=== PATIENT | female | born 1945 | race Caucasian/White ===

== ENCOUNTER 2017-11-10 23:01 | Emergency (ER) | payer MEDICARE, OTHER ==
[2017-11-10 23:44] VITALS: TEMP 97.2; O2SAT 96
[2017-11-10] MEDS ORDERED: cloNIDine HCL 0.1 MG TAB PO ONE (23:45)
--- NOTE | 2017-11-10 23:49 | ED.PDOC ---
History of Present Illness - General Chief Complaint: Blood Pressure Problem Stated Complaint: high B/P, headache Time Seen by Provider: 11/10/17 23:44 Source: patient Exam Limitations: no limitations - History of Present Illness Initial Comments: patient comes in with headache, body ache, chest discomfort, and elevated blood pressure since about noon. Patient states she ran of her blood pressure medication on Saturday. Patient normally takes 1 pill a day but is unsure about the actual name of the medication. Patient states her blood pressure had been doing well since the passing of her mother. However, today she started feeling ill. Patient states about noon she noticed that she had a bilateral throbbing headache at the temples with no blurry vision, nausea, or vomiting. As the day progressed every time she tried to get up from rest patient refill aching in her chest back and abdomen. She denies any overt pain, diaphoresis, or shortness of breath. Patient just does not feel well. Timing/Duration: 7-24 hours Severity: mild Location: back, other Activities at Onset: activity Prior Chest Pain/Cardiac Workup: no prior chest pain, no prior cardiac workup Improving Factors: rest Worsening Factors: movement Nitro Today/Relief: no nitro taken today Aspirin Treatment Today: no aspirin today Associated Symptoms: headaches, malaise Allergies/Adverse Reactions: Allergies Sulfamethoxazole w/Trimethoprim [From Bactrim] Allergy (Mild, Verified 11/10/17 23:43) Rash Home Medications: Ambulatory Orders Calcium 600 mg PO DAILY 06/12/15 Colchicine [Colcrys] 0.6 mg PO DAILY 06/12/15 Conjugated Estrogens [Premarin] 0.625 mg PO DAILY 06/12/15 Dicyclomine HCl [Bentyl] 20 mg PO QID PRN #20 tab 06/12/15 Famotidine [Pepcid Tab] 20 mg PO BID PRN 06/12/15 Gabapentin 300 mg PO DAILY 06/12/15 Losartan Potassium & Hydrochlo [Losartan Potassium/Hydroc 100-25 mg] 1 tab PO DAILY 06/12/15 Metoprolol Succinate [Metoprolol Succinate ER] 100 mg PO DAILY 06/12/15 Potassium Gluconate 595 mg PO DAILY 06/12/15 tiZANidine [Zanaflex] 4 mg PO BEDTIME 06/12/15 Review of Systems - Review of Systems Constitutional: States: see HPI. Denies: chills, fever EENTM: States: eye pain. Denies: double vision, ear pain, ear discharge, nose pain, throat pain Respiratory: States: no symptoms reported. Denies: cough, short of breath, wheezing Gastrointestinal/Abdominal: States: see HPI Genitourinary: States: no symptoms reported Musculoskeletal: States: back pain Skin: States: no symptoms reported Neurological: States: headache, weakness. Denies: numbness, paresthesia, tingling Past Medical History (General) - Patient Medical History Hx Seizures: No Hx Stroke: No Hx Dementia: No Hx Asthma: No Hx of COPD: No Hx Cardiac Disorders: No Hx Congestive Heart Failure: No Hx Pacemaker: No Hx Hypertension: Yes Hx Thyroid Disease: No Hx Diabetes: Yes - borderline Hx Gastroesophageal Reflux: Yes Hx Renal Disease: No Hx Cancer: No Hx of HIV: No Hx Hepatitis C: No Hx MRSA: No Surgical History: Hysterectomy - Vaccination History Hx Influenza Vaccination: Yes - 2014 Hx Pneumococcal Vaccination: Yes - Social History Hx Tobacco Use: No Family Medical History - Family History Mother Family History: No Known Living Status: Unknown Physical Exam - Physical Exam General Appearance: Alert, No apparent distress Eyes, Ears, Nose, Throat Exam: PERRL/EOMI, normal ENT inspection, TMs normal, pharynx normal Neck: non-tender, full range of motion, supple, normal inspection Respiratory: chest non-tender, lungs clear, normal breath sounds, no respiratory distress Cardiovascular/Chest: normal peripheral pulses, regular rate, rhythm, no edema, no gallop, no JVD, no murmur Peripheral Pulses: radial,right: 2+ Gastrointestinal/Abdominal: normal bowel sounds, non tender, soft, no organomegaly, no pulsatile mass Extremity: normal range of motion Neurologic: dust puller II-XII nml as tested, no motor/sensory deficits, alert, oriented x 3 Skin Exam: normal color Progress - Progress Progress: 11/11/17 00:57 11/10/17 23:45 EKG STAT Laboratory Results WBC 6.9 K/mm3 (4.8-10.8) 11/10/17 23:52 RBC 4.32 M/mm3 (4.20-5.40) 11/10/17 23:52 Hgb 14.0 gm/dL (12.0-16.0) 11/10/17 23:52 Hct 40.7 % (36.0-47.0) 11/10/17 23:52 MCV 94.3 fl (81.0-99.0) 11/10/17 23:52 MCH 32.3 pg (27.0-31.0) H 11/10/17 23:52 MCHC 34.3 g/dL (33.0-37.0) 11/10/17 23:52 RDW 13.8 % (11.5-14.5) 11/10/17 23:52 Plt Count 244 K/mm3 (130-400) 11/10/17 23:52 MPV 8.7 fl (7.40-10.4) 11/10/17 23:52 Absolute Neuts (auto) 3.50 K/uL (1.8-6.8) 11/10/17 23:52 Absolute Lymphs (auto) 2.70 K/uL (1.0-3.4) 11/10/17 23:52 Absolute Monos (auto) 0.50 K/uL (0.2-0.8) 11/10/17 23:52 Absolute Eos (auto) 0.10 K/uL (0.0-0.4) 11/10/17 23:52 Absolute Basos (auto) 0.10 K/uL (0.0-0.1) 11/10/17 23:52 Neutrophils % 51.2 % (42.0-78.0) 11/10/17 23:52 Lymphocytes % 39.3 % (20.0-50.0) 11/10/17 23:52 Monocytes % 6.8 % (2.0-9.0) 11/10/17 23:52 Eosinophils % 1.8 % (1.0-5.0) 11/10/17 23:52 Basophils % 0.9 % (0.0-2.0) 11/10/17 23:52 PT 10.7 SECONDS (9.4-12.5) 11/10/17 23:52 INR 0.920 11/10/17 23:52 PTT (SP) 29.3 SECONDS (25.1-36.5) 11/10/17 23:52 Sodium 140 mmol/L (135-145) 11/10/17 23:52 Potassium 3.4 mmol/L (3.6-5.0) L 11/10/17 23:52 Chloride 104 mmol/L (101-111) 11/10/17 23:52 Carbon Dioxide 28 mmol/L (21-31) 11/10/17 23:52 Anion Gap 11.4 (12-18) L 11/10/17 23:52 BUN 13 mg/dL (7-18) 11/10/17 23:52 Creatinine 0.70 mg/dL (0.6-1.3) 11/10/17 23:52 BUN/Creatinine Ratio 18.6 (10-20) 11/10/17 23:52 Random Glucose 179 mg/dL (70-105) H 11/10/17 23:52 Serum Osmolality 284.0 mOsm/L (275-295) 11/10/17 23:52 Calcium 8.9 mg/dL (8.4-10.2) 11/10/17 23:52 Magnesium 1.6 mg/dL (1.8-2.5) L 11/10/17 23:52 Total Bilirubin 0.3 mg/dL (0.2-1.0) 11/10/17 23:52 Direct Bilirubin < 0.1 mg/dL (0-0.2) 11/10/17 23:52 Indirect Bilirubin 0.2 mg/dL (0.2-0.8) 11/10/17 23:52 AST 22 IU/L (10-42) 11/10/17 23:52 ALT 22 IU/L (10-60) 11/10/17 23:52 Alkaline Phosphatase 55 IU/L (42-121) 11/10/17 23:52 Creatine Kinase 38 IU/L (26-140) 11/10/17 23:52 CK-MB (CK-2) 2.3 ng/mL (0.0-4.4) 11/10/17 23:52 CK-MB (CK-2) % Not Reportable 11/10/17 23:52 Troponin I 0.02 ng/mL (0.01-0.05) 11/10/17 23:52 Serum Total Protein 6.6 gm/dL (6.4-8.2) 11/10/17 23:52 Albumin 3.7 g/dl (3.2-5.5) 11/10/17 23:52 Globulin Cancelled 11/10/17 23:52 Albumin/Globulin Ratio Cancelled 11/10/17 23:52 Discussed with patient results including low magnesium. Patient is on replacement from her Rheum. She will increase it to BID for now. Patient still with headache but other body aches are better. Trial of Ultram 50 mg as patient is on NSAIDS and took IBU prior to arrival. We did discuss use of Tylenol instead as NSAIDS can increase BP. 11/11/17 01:17 BP continues to improve and now [place] and burning eyes have resolved. Patient has refill of medications and just needs to pick it up at the pharmacy in the morning. Patient understands importance of not missing a dose. Departure - Departure Clinical Impression: Hypertensive urgency Disposition: Discharge to Home or Self Care Departure Forms: ED Discharge - Pt. Copy, Patient Portal Self Enrollment Instructions: DI for High Blood Pressure Diet: low salt diet Referrals: Rasheed Israel MD [Primary Care Provider] - 1-2 Weeks Home Medications: Ambulatory Orders Calcium 600 mg PO DAILY 06/12/15 Colchicine [Colcrys] 0.6 mg PO DAILY 06/12/15 Conjugated Estrogens [Premarin] 0.625 mg PO DAILY 06/12/15 Dicyclomine HCl [Bentyl] 20 mg PO QID PRN #20 tab 06/12/15 Famotidine [Pepcid Tab] 20 mg PO BID PRN 06/12/15 Gabapentin 300 mg PO DAILY 06/12/15 Losartan Potassium & Hydrochlo [Losartan Potassium/Hydroc 100-25 mg] 1 tab PO DAILY 06/12/15 Metoprolol Succinate [Metoprolol Succinate ER] 100 mg PO DAILY 06/12/15 Potassium Gluconate 595 mg PO DAILY 06/12/15 tiZANidine [Zanaflex] 4 mg PO BEDTIME 06/12/15 Additional Instructions: group managing director prescription medication at the pharmacy in the morning. Increase her previously prescribed magnesium to twice a day. Return to emergency room for return of headache, vision change, body aches, chest pain, or shortness of breath.
[2017-11-11] MEDS ORDERED: traMADol HCL 50 MG TAB PO ONE (00:56)
[2017-11-11 01:32] VITALS: BP 150/80
== END 2017-11-11 01:34 | disposition home or self-care (01) ==
LOC: ER 23:01
DX: I16.0 Hypertensive urgency (principal); K21.9 Gastro-esophageal reflux disease without esophagitis

== ENCOUNTER → 2018-02-19 | Outpatient (CLI) | payer MEDICARE, OTHER ==
--- NOTE | 2018-02-20 11:20 | MAM ---
EXAM DESCRIPTION: 3D Screening BILATERAL : Digital Mammography. CLINICAL HISTORY: 72 years Female SCREEN . No complaints. Remote family history of breast cancer. Childbirth. Postmenopausal. Currently on HRT. COMPARISON: 2-D digital screening bilateral study 07/30/2013. No prior reports available. TECHNIQUE: Bilateral CC and MLO projection full-field images, 3-D tomosynthesis digital mammographic technique. CAD not utilized. FINDINGS: The breast parenchymal density pattern is: Heterogeneously dense breast tissue, which may obscure small masses. No skin thickening or nipple retraction. Bilateral vascular calcifications. Right axillary lymph node. No new focal, stellate mass or density, focal asymmetry , and no suspicious microcalcifications bilaterally. Stable mammograms compared to prior study, taking into account differences in mammographic technique. IMPRESSION: BI-RADS CATEGORY: 2 - BENIGN FINDINGS. FOLLOW UP: Routine digital bilateral screening, one year interval from January 2018. Written communication explaining the IMPRESSION and follow-up, will be mailed to the patient and referring health care provider. According to the [employer], yearly mammograms are recommended starting at age 40 and continuing as long as a woman is in good health. Any breast change noted on a breast self-exam should be reported promptly to the patient's healthcare provider. Breast MRI is recommended for women with an approximately 20-25% or greater lifetime risk of breast cancer, including women with a strong family history of breast or ovarian cancer and women who have been treated for Hodgkin's disease. A negative mammographic report should not delay tissue diagnosis in patients with significant clinical history or physical findings. Extremely dense breast tissue limits the sensitivity of digital mammography. Electronically signed by: Arnie Law MD 02/20/2018 11:19 AM CDT
== END ==
LOC: RAD 10:33
PROVIDERS: ATTEND Family Medicine
DX: Z12.31 Encounter for screening mammogram for malignant neoplasm of breast (principal); I10 Essential (primary) hypertension; E55.9 Vitamin D deficiency, unspecified; M35.3 Polymyalgia rheumatica; E78.1 Pure hyperglyceridemia

== ENCOUNTER → 2019-07-09 | Outpatient (CLI) | payer MEDICARE, OTHER | LOC: GMA MATASK 10:47 | PROVIDERS: ATTEND Family Medicine | DX: I10 Essential (primary) hypertension (principal); E55.9 Vitamin D deficiency, unspecified; E78.2 Mixed hyperlipidemia; E11.9 Type 2 diabetes mellitus without complications ==

== ENCOUNTER → 2020-01-06 | Outpatient (CLI) | payer MEDICARE, OTHER | LOC: GMA MATASK 16:08 | PROVIDERS: ATTEND Family Medicine | DX: M10.9 Gout, unspecified (principal); I10 Essential (primary) hypertension; E78.2 Mixed hyperlipidemia; E11.9 Type 2 diabetes mellitus without complications ==

== ENCOUNTER 2020-02-17 13:34 | Emergency (ER) | payer MEDICARE, OTHER ==
--- NOTE | 2020-02-17 14:38 | RAD ---
EXAM: Chest,1 View CLINICAL HISTORY: syncope COMPARISON STUDY: June 12, 2015 TECHNICAL: A single anteroposterior (AP) view of the chest was performed. FINDINGS: No consolidations, effusions, or edema. The heart size is not enlarged. AP portable technique causes magnification with some enlargement of the cardiac silhouette. IMPRESSION: NO ACUTE ABNORMALITY. Electronically signed by: Gama Reyes MD 02/17/2020 2:36 PM CDT
--- NOTE | 2020-02-17 14:59 | ED.PDOC ---
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 no associated sx. Has not happened before Allergies/Adverse Reactions: Allergies Sulfamethoxazole w/Trimethoprim [From Bactrim] Allergy (Mild, Verified 11/10/17 23:43) Rash Home Medications: Ambulatory Orders Calcium 600 mg PO DAILY 06/12/15 Colchicine [Colcrys] 0.6 mg PO DAILY 06/12/15 Conjugated Estrogens [Premarin] 0.625 mg PO DAILY 06/12/15 Dicyclomine HCl [Bentyl] 20 mg PO QID PRN #20 tab 06/12/15 Famotidine [Pepcid Tab] 20 mg PO BID PRN 06/12/15 Gabapentin 300 mg PO DAILY 06/12/15 Losartan Potassium & Hydrochlo [Losartan Potassium/Hydroc 100-25 mg] 1 tab PO DAILY 06/12/15 Metoprolol Succinate [Metoprolol Succinate ER] 100 mg PO DAILY 06/12/15 Potassium Gluconate 595 mg PO DAILY 06/12/15 tiZANidine [Zanaflex] 4 mg PO BEDTIME 06/12/15 Review of Systems - Review of Systems Constitutional: States: no symptoms reported EENTM: States: no symptoms reported Respiratory: States: no symptoms reported Cardiology: States: no symptoms reported Gastrointestinal/Abdominal: States: no symptoms reported Genitourinary: States: no symptoms reported Musculoskeletal: States: no symptoms reported Skin: States: no symptoms reported Endocrine: States: no symptoms reported Hematologic/Lymphatic: States: no symptoms reported Past Medical History (General) - Patient Medical History Hx Seizures: No Hx Stroke: No Hx Dementia: No Hx Asthma: No Hx of COPD: No Hx Cardiac Disorders: No Hx Congestive Heart Failure: No Hx Pacemaker: No Hx Hypertension: Yes Hx Thyroid Disease: No Hx Diabetes: Yes - borderline Hx Gastroesophageal Reflux: Yes Hx Renal Disease: No Hx Cancer: No Hx of HIV: No Hx Hepatitis C: No Hx MRSA: No - Vaccination History Hx Influenza Vaccination: Yes - 2015 Hx Pneumococcal Vaccination: Yes - Social History Hx Tobacco Use: No Hx Chewing Tobacco Use: No Hx Alcohol Use: No Hx Substance Use: No Hx Substance Use Treatment: No Hx Depression: No Family Medical History - Family History Mother Family History: No Known Living Status: Unknown Physical Exam - Physical Exam General Appearance: Alert, Comfortable, No apparent distress Eye Exam: bilateral normal Ears, Nose, Throat: hearing grossly normal, normal ENT inspection Neck: non-tender, full range of motion, supple, normal inspection Respiratory: chest non-tender, lungs clear, normal breath sounds, no respiratory distress, no accessory muscle use Cardiovascular/Chest: normal peripheral pulses, regular rate, rhythm, no edema, no JVD, no murmur Gastrointestinal/Abdominal: normal bowel sounds, non tender, soft, no organomegaly Back Exam: normal inspection Extremity: normal range of motion, non-tender, normal inspection, no pedal edema Neurologic: no motor/sensory deficits, alert, oriented x 3 Departure - Departure Clinical Impression: Syncope Qualifiers: Syncope type: unspecified Qualified Code(s): R55 - Syncope and collapse Disposition: Discharge to Home or Self Care Departure Forms: ED Discharge - Pt. Copy, Patient Portal Self Enrollment Instructions: DI for Syncope in Adults (Fainting) Referrals: Kenneth Tapia MD [Primary Care Provider] - 1-2 Weeks Home Medications: Ambulatory Orders Calcium 600 mg PO DAILY 06/12/15 Colchicine [Colcrys] 0.6 mg PO DAILY 06/12/15 Conjugated Estrogens [Premarin] 0.625 mg PO DAILY 06/12/15 Dicyclomine HCl [Bentyl] 20 mg PO QID PRN #20 tab 06/12/15 Famotidine [Pepcid Tab] 20 mg PO BID PRN 06/12/15 Gabapentin 300 mg PO DAILY 06/12/15 Losartan Potassium & Hydrochlo [Losartan Potassium/Hydroc 100-25 mg] 1 tab PO DAILY 06/12/15 Metoprolol Succinate [Metoprolol Succinate ER] 100 mg PO DAILY 06/12/15 Potassium Gluconate 595 mg PO DAILY 06/12/15 tiZANidine [Zanaflex] 4 mg PO BEDTIME 06/12/15
[2020-02-17 16:03] VITALS: BP 135/72; TEMP 97.3; O2SAT 94
== END 2020-02-17 15:35 | disposition home or self-care (01) ==
LOC: ER 13:34
DX: R55 Syncope and collapse (principal); I10 Essential (primary) hypertension; R73.03 Prediabetes; K21.9 Gastro-esophageal reflux disease without esophagitis; Z79.899 Other long term (current) drug therapy; Z88.2 Allergy status to sulfonamides

== ENCOUNTER → 2020-02-17 | Outpatient (CLI) | payer MEDICARE, OTHER | LOC: RESP 15:58 | PROVIDERS: ATTEND Family Medicine | DX: R55 Syncope and collapse (principal) ==

== ENCOUNTER → 2020-03-03 | Outpatient (CLI) | payer MEDICARE, OTHER ==
--- NOTE | 2020-03-05 19:53 | US ---
EXAM DESCRIPTION: Carotid Duplex: ULTRASOUND. CLINICAL HISTORY: 74 years Female SYNCOPE AND COLLAPSE COMPARISON: None. TECHNIQUE: Transcutaneous scanning utilizing gentile-scale and Doppler modes to evaluate the bilateral carotid systems and vertebral arteries. Percentage of diameter of stenosis or no stenosis recorded will be based upon NASCET criteria. FINDINGS: Peak systolic/end diastolic velocities (CM-Sec) CCA Right 80/16 Left 77/15. ICA Right proximal 61/6, mid 65/9. Left proximal 59/16, Distal 56/20. Vertebral Right 44/15 Left 37/9. ECA (PS Only) Right 63 left 68. ICA/CCA peak systolic velocity ratio: Right 0.8 Left 0.8 ICA/CCA end diastolic velocity ratio: Right 0.6 Left 1.1 Vertebral arteries: antegrade flow. Comments: Minimal atherosclerotic calcification in the bilateral carotid bulbs and bifurcations and proximal ICA. Left mid CCA bulb: Diameter stenosis 22%, area stenosis 27%. IMPRESSION: 1. Doppler evaluation of the bilateral carotid systems and vertebral arteries shows no hemodynamically significant stenoses (less than 70%). 2. No significant amount of plaque in the carotid arteries bilaterally. Bilateral vertebral arteries showed antegrade-cephalad flow. Electronically signed by: Arnie Law MD 03/05/2020 7:52 PM CDT
== END ==
LOC: US 13:30
PROVIDERS: ATTEND Family Medicine
DX: R55 Syncope and collapse (principal)